=== PATIENT | female | born 1940 | race Caucasian/White ===

== ENCOUNTER → 2017-11-18 | Outpatient (CLI) | payer MEDICARE ==
[~2017-11-18] MED LIST: ASPI325 PO; FURO20 PO; HYDACE5 PO; Lisinopril2.5 MG PO; NEBI5 PO; One Daily Comp1 EACH PO; Pred Forte1 ML LEFTEYE; SPIR25 PO
== END | disposition home or self-care (01) ==
LOC: LAB SHORT 15:45 → LAB 15:45
DX: D00.07 Carcinoma in situ of tongue (principal); D00.06 Carcinoma in situ of floor of mouth
CPT/HCPCS: 88305

== ENCOUNTER → 2018-10-31 | Outpatient (CLI) | payer MEDICARE ==
[~2018-10-31] MED LIST changes: +ACET325 PO; +FAMO20 PO; +FURO40 PO; +LORA2L PO; +MORP20L PO; +NYST237S PO; +ONDA4ODT MM; +POTA10T PO; +PREDNISOLONE ACE5 ML LEFTEYE; +Prednisone10 MG PO; +Spironolactone25 MG PO; +Ventolin/Prove6.7 GM INH
[2018-10-31 09:58] LABS: BASOPHILS ABSOLUTE AUTO 0.08 K/mm3 (0.00-0.23); BASOPHILS PERCENT AUTO 1 % (0-2); EOSINOPHILS PERCENT AUTO 1 % (0-6); Hematocrit 43.1 % (33.0-51.0); Hemoglobin 14.8 g/dL (11.5-16.0); IMMATURE GRAN ABSOLUTE AUTO 0.02 K/mm3 (0.00-0.10); IMMATURE GRAN PERCENT AUTO 0 % (0-1); LYMPHOCYTES ABSOLUTE AUTO 0.61 K/mm3 (0.84-5.20); LYMPHOCYTES PERCENT AUTO 9 % (21-46); MONOCYTES ABSOLUTE AUTO 0.84 K/mm3 (0.16-1.47); MONOCYTES PERCENT AUTO 12 % (4-13); Mean Corpuscular HGB Conc 34.3 g/dL (31.5-36.5); Mean Corpuscular Volume 96 fL (80-100); Mean Platelet Volume 10.3 fL (9.1-12.4); NEUTROPHILS ABSOLUTE AUTO 5.38 K/mm3 (1.96-9.15); NEUTROPHILS PERCENT AUTO 77 % (41-73); Platelet Count 190 K/mm3 (150-400); RDW Coefficient Variation 13.3 % (11.7-14.2); RDW Standard Deviation 47.1 fL (35.1-46.3); Red Blood Cell Count 4.48 M/mm3 (3.80-5.20); White Blood Cell Count 7.03 K/mm3 (4.00-11.30)
[2018-10-31 10:07] LABS: Anion Gap 11 mmol/L (6-16); Blood Urea Nitrogen 28 mg/dL (8-24); Bun/Creatinine Ratio 16.6 (12.0-20.0); CO2, Blood 25 mmol/L (21-32); Calcium, Blood 9.1 mg/dL (8.5-10.1); Chloride, Blood 98 mmol/L (98-108); Creatinine, Blood 1.69 mg/dL (0.40-1.00); Glomerular Filtration Rate 29 (60-); Glucose, Blood 99 mg/dL (70-99); Potassium, Blood 4.4 mmol/L (3.5-5.5); Sodium, Blood 134 mmol/L (136-145)
[2018-10-31 10:08] LABS: Troponin I <0.017 ng/mL (0.000-0.040)
== END | disposition home or self-care (01) ==
LOC: LAB SHORT 09:49 → LAB EV 09:49
PROVIDERS: Physician Assistant Surgical
DX: R06.09 Other forms of dyspnea (principal)
CPT/HCPCS: 80048; 83880; 84484; 85025

== ENCOUNTER 2019-01-11 23:29 | Inpatient (IN) | payer MEDICARE ==
[~2019-01-11] VITALS: Ht 167.6 cm; Wt 70.3 kg
[~2019-01-11 23:29] MED LIST changes: -ACET325 PO; -FAMO20 PO; -FURO40 PO; -LORA2L PO; -MORP20L PO; -NYST237S PO; -ONDA4ODT MM; -POTA10T PO; -PREDNISOLONE ACE5 ML LEFTEYE; -Prednisone10 MG PO; -Spironolactone25 MG PO; -Ventolin/Prove6.7 GM INH
[2019-01-11 23:46] LABS: BASOPHILS ABSOLUTE AUTO 0.05 K/mm3 (0.00-0.23); BASOPHILS PERCENT AUTO 1 % (0-2); EOSINOPHILS ABSOLUTE AUTO 0.02 K/mm3 (0.00-0.68); EOSINOPHILS PERCENT AUTO 0 % (0-6); Hematocrit 43.3 % (33.0-51.0); Hemoglobin 14.9 g/dL (11.5-16.0); IMMATURE GRAN ABSOLUTE AUTO 0.05 K/mm3 (0.00-0.10); IMMATURE GRAN PERCENT AUTO 1 % (0-1); LYMPHOCYTES ABSOLUTE AUTO 0.63 K/mm3 (0.84-5.20); LYMPHOCYTES PERCENT AUTO 7 % (21-46); MONOCYTES ABSOLUTE AUTO 1.19 K/mm3 (0.16-1.47); MONOCYTES PERCENT AUTO 13 % (4-13); Mean Corpuscular HGB 32.3 pg (26.0-34.0); Mean Corpuscular HGB Conc 34.4 g/dL (31.5-36.5); Mean Corpuscular Volume 94 fL (80-100); Mean Platelet Volume 10.2 fL (9.1-12.4); NEUTROPHILS ABSOLUTE AUTO 7.49 K/mm3 (1.96-9.15); NEUTROPHILS PERCENT AUTO 80 % (41-73); Platelet Count 159 K/mm3 (150-400); RDW Coefficient Variation 13.5 % (11.7-14.2); RDW Standard Deviation 46.3 fL (35.1-46.3); Red Blood Cell Count 4.61 M/mm3 (3.80-5.20); White Blood Cell Count 9.43 K/mm3 (4.00-11.30)
[2019-01-12 00:09] LABS: Troponin I 0.016 ng/mL (0.000-0.040)
[2019-01-12 00:13] LABS: Albumin, Blood 3.5 g/dL (3.4-5.0); Albumin/Globulin Ratio 1.1 (0.8-1.8); Bilirubin, Total 0.7 mg/dL (0.1-1.0); Calcium, Blood 8.4 mg/dL (8.5-10.1); Creatinine, Blood 1.67 mg/dL (0.40-1.00); Globulin, Blood 3.2 g/dL (2.2-4.0); Potassium, Blood 4.1 mmol/L (3.5-5.5); Total Protein, Blood 6.7 g/dL (6.4-8.2)
[2019-01-12] MEDS ORDERED: POTA10T PO (00:22)
[2019-01-12] MEDS ORDERED: FURO40 PO (00:23)
[2019-01-12] MEDS ORDERED: Spironolactone25 MG PO (00:23)
[2019-01-12 01:17] LABS: Free Thyroxine 0.99 ng/dL (0.70-1.60)
[2019-01-12 01:19] LABS: Thyroid Stimulating Hormone 5.05 uIU/mL (0.360-4.800); Triiodothyronine, Free 2.36 pg/mL (2.18-3.98)
[2019-01-12 01:36] LABS: PCO2 Arterial 35.5 mmHg (35-45); PO2 Arterial 67.9 mmHg (80-100); pH Blood Arterial 7.33 (7.35-7.45)
[2019-01-12 03:05] LABS: Source, Urine Clean Catch
[2019-01-12 03:07] LABS: Appearance, Urine Clear (Clear); Bilirubin, Urine Neg (Neg); Blood, Urine Neg (Neg); Color, Urine Yellow (P-Yellow); Glucose Qualitative, Urine Neg (Neg); Ketones, Urine Neg (Neg); Leukocyte Esterase, Urine 1+ (Neg); Nitrite, Urine Neg (Neg); Protein, Urine 2+ (Neg); Specific Gravity, Urine 1.015 (1.003-1.022); Urobilinogen, Urine NORM (Normal)
[2019-01-12 03:13] LABS: Bacteria Many /hpf; Red Blood Cells, Urine 0-2 /hpf (0-2); Squamous Epithelial Cells Mod /hpf (Few)
[2019-01-12 03:29] LABS: Creatinine, Urine Random 73.6 mg/dL (27.00-270.00); Uric Acid, Urine Random 19.4 mg/dL (7.5-49.5)
--- NOTE | 2019-01-12 04:16 | NUR ---
ADMIT PT TO PCU FROM ED ON BED, SPO2>90% ON 2LNC WHICH IS BASELINE FOR PT. PT TACHYPNEIC. PT PROVIDED URINE SAMPLE AND SPUTUM SAMPLE. VSS UPON ADMISSION EXCEPT RR. BIPAP ON STANDBY AT BEDISDE, PT DID NOT REQUIRE THIS DURING THEIR TIME IN PCU. IV ABX X 2 ADMINISTERED TO PT. 2ND IV ONTAINED. ADMISSION PACKET COMPLETED. PT'S LABS SHOW EXTREME HYPONATREMIA, HYPERSALINE SOLUTION ORDERED BY [facility], PER FACILITY PROTOCOL THIS CAN ONLY BE ADMINISTERED IN ICU OR ED. [facility] CALLED, DECISION MADE TO TRANSFER PT TP ICU. ALL PT'S BELONGINS GIBRAN TO ICU WHEN PT HAS TRANSFERRED. REPORT GIVEN TO BILLY REN.
--- NOTE | 2019-01-12 04:41 | NUR ---
ARRIVAL TO ICU PT ARRIVES AT 0400 FROM PCU. SHE IS AWAKE, A/O X3 BUT IS SLIGHTLY ANXIOUS. STATES SHE IS COLD. BREATH SOUNDS COARSE, MORE SO IN R SIDE. NSR, HR 90S. BP LOW BUT PT STATES HER BP IS USUALLY ON THE LOWER SIDE; MAP GREATER THAN 65. SPO2 96% ON 2L NC. RECEIVED DUONEB TX AFTER ARRIVAL TO ICU. 3% SALINE STARTED IN PERIPHERAL IV, SINCE THAT IS ONLY ACCESS AT THIS TIME. WILL MONITOR SITE CLOSELY. CALL LIGHT WITHIN REACH.
[2019-01-12 05:28] LABS: Adenovirus Not Detected (NOT DETECT); Bordetella pertussis Not Detected (NOT DETECT); Chlamydophila pneumoniae Not Detected (NOT DETECT); Coronavirus 229E Not Detected (NOT DETECT); Coronavirus HKU1 Not Detected (NOT DETECT); Coronavirus NL63 Not Detected (NOT DETECT); Coronavirus OC43 Not Detected (NOT DETECT); Human Metapneumovirus Not Detected (NOT DETECT); Human Rhinovirus/Enterovirus Detected (NOT DETECT); Influenza A Not Detected (NOT DETECT); Influenza A/2009-H1 Not Detected (NOT DETECT); Influenza A/H1 Not Detected (NOT DETECT); Influenza A/H3 Not Detected (NOT DETECT); Influenza B Not Detected (NOT DETECT); Mycoplasma pneumoniae Not Detected (NOT DETECT); Parainfluenza Virus 1 Not Detected (NOT DETECT); Parainfluenza Virus 2 Not Detected (NOT DETECT); Parainfluenza Virus 3 Not Detected (NOT DETECT); Parainfluenza Virus 4 Not Detected (NOT DETECT); Respiratory Syncytial Virus Not Detected (NOT DETECT)
--- NOTE | 2019-01-12 06:31 | NUR ---
SHIFT SUMMARY PT ARRIVED FROM PCU TO ICU AT 0400. 3% SALINE STARTED AROUND 0430. NO INFILTRATION OR REDNESS NOTED AROUND IV SITE. PT RECIEVED DUONEB AFTER ARRIVAL FOR SOB. WAS HAVING DIFFICULTY LYING BACK IN BED. REPEAT LACTIC ACID ELEVATED. MD PETERSON NOTIFIED, ALONG WITH BNP RESULT. T.O. TO ADMINISTER AM LASIX EARLY. PT SLEEPING AT THIS TIME. LABS TO BE DRAWN AT 0700. BP 90S/60S; AWARE. WILL GIVE BEDSIDE, HANDOFF REPORT TO DAY RN.
[2019-01-12 07:12] LABS: Hematocrit 42.2 % (33.0-51.0); Hemoglobin 14.7 g/dL (11.5-16.0); Mean Corpuscular HGB 32.2 pg (26.0-34.0); Mean Corpuscular HGB Conc 34.8 g/dL (31.5-36.5); Mean Corpuscular Volume 93 fL (80-100); Platelet Count 154 K/mm3 (150-400); RDW Coefficient Variation 13.3 % (11.7-14.2); RDW Standard Deviation 45.1 fL (35.1-46.3); Red Blood Cell Count 4.56 M/mm3 (3.80-5.20); White Blood Cell Count 8.77 K/mm3 (4.00-11.30)
[2019-01-12 07:28] LABS: Bun/Creatinine Ratio 21.2 (12.0-20.0); Calcium, Blood 8.6 mg/dL (8.5-10.1); Creatinine, Blood 1.6 mg/dL (0.40-1.00)
[2019-01-12 07:33] LABS: Albumin, Blood 3.4 g/dL (3.4-5.0); Bilirubin, Total 0.7 mg/dL (0.1-1.0); Bun/Creatinine Ratio 21.5 (12.0-20.0); CPK Creatine Kinase 246 U/L (26-193); Calcium, Blood 8.4 mg/dL (8.5-10.1); Creatinine, Blood 1.58 mg/dL (0.40-1.00); Globulin, Blood 3.4 g/dL (2.2-4.0); Potassium, Blood 4.1 mmol/L (3.5-5.5); Total Protein, Blood 6.8 g/dL (6.4-8.2); Troponin I <0.015 ng/mL (0.000-0.040)
[2019-01-12 07:47] LABS: Creatine Kinase MB 11.7 ng/mL (0.0-3.6); Creatine Kinase MB Index 4.8 (0.0-4.0)
--- NOTE | 2019-01-12 07:54 | NUR ---
INITIAL ASSESSMENT PATIENT RESTING QUIETLY UPON ENTERING ROOM. PATIENT ALERT AND ORIENTED X 4, AFEBRILE. CIWA OF 1 PATIENT CAN BE ANXIOUS AT TIMES. PATIENT CONTINUES TO STATE THAT SHE "IS SO THIRSTY, BUT THEY WON'T LET HER DRINK". NURSE NOTED MOIST COUGH LATER IN CONVERSATION AND PATIENT STATES "I DON'T HAVE ANY WATER TO COUGH UP". PATIENT INFORMED THAT BNP ELEVATED WHEN CAME IN AND EXPLAINED THAT IT MEANS SHE IS FLUID OVERLOADED AND THAT EVEN THOUGH IT FEELS LIKE SHE IS DRY THAT SHE ACTUALLY IS NOT. PATIENT STATES THAT SHE UNDERSTANDS. 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 PATIENT WEAK BUT ABLE TO MOVE ALL EXTREMITIES. PATIENT DENIES PAIN OR DISCOMFORT AT THIS TIME. PATIENT SATTING 90% AND GREATER ON 2 L NC. PATIENT STATES SHE NORMALLY WEARS 2 L NC AT NIGHT AT HOME. R LUNGS COARSE THROUGHOUT, L LUNGS COARSE AND WHEEZY THROUGHOUT. PATIENT HAS MOIST, NONPRODUCTIVE COUGH. PATIENT STATES THAT SHE USUALLY COUGHS UP THICK, WHITE SPUTUM AT HOME. PATIENT HAS SOB WITH EXERTION. PATIENT IN SR, HR IN THE 90S. SBP IN THE 90S. AM LASIX GIVEN EARLY BY SKIMMER REVERBERATORY FOR COARSE/ CRACKLY LUNGS AND SOB. 1+ EDEMA NOTED IN BLES. GI WNL. PATIENT NPO AT THIS TIME. LAST BM YESTERDAY. WNL. SKIN COOL, DRY, FRAGILE. NO WOUNDS NOTED. 3% SALINE INFUSING AT 30 MLS/ HOUR. BED LOW, CALL LIGHT IN REACH. WILL CONTINUE TO MONITOR PATIENT FREQUENTLY THROUGHOUT SHIFT.
--- NOTE | 2019-01-12 12:00 | NUR ---
PATIENT REMAINS AFEBRILE. VITAL SIGNS STABLE. NO COMPLAINTS. NO ACUTE CHANGES TO NOTE ON. WILL CONTINUE TO MONITOR.
[2019-01-12] MEDS ORDERED: PREDNISOLONE ACE5 ML LEFTEYE (15:04)
[2019-01-12 15:06] LABS: Bun/Creatinine Ratio 21.5 (12.0-20.0); Calcium, Blood 8.7 mg/dL (8.5-10.1); Creatinine, Blood 1.58 mg/dL (0.40-1.00)
[2019-01-12] MEDS ORDERED: Ventolin/Prove6.7 GM INH (15:08)
--- NOTE | 2019-01-12 15:29 | NUR ---
DR. ROCKWELL CALLED AND INFORMED OF SODIUM RESULT OF 123. DOCTOR WOULD LIKE TO CONTINUE 3% SODIUM DRIP. ORDER TO START ON CARDIAC DIET WITH 1500 CC FLUID RESTRICTION.
--- NOTE | 2019-01-12 16:30 | NUR ---
PATIENT REMAINS RESTING QUIETLY IN BED. NO COMPLAINTS. AFEBRILE. VSS. PATIENT IN ST, HR IN THE LOW 100S. SBP IN THE 90S. LUNGS COARSE THROUGHOUT. PATIENT SATTING 90% AND GREATER ON 2 L NC. PATIENT HAS MOIST, OCCASIONAL PRODUCTIVE COUGH, PRODUCING MODERATE AMOUNT OF THICK, WHITE SPUTUM. NO OTHER ACUTE CHANGES TO NOTE ON AT THIS TIME. WILL CONTINUE TO MONITOR.
[2019-01-12 17:02] LABS: CPK Creatine Kinase 339 U/L (26-193); Troponin I <0.015 ng/mL (0.000-0.040)
[2019-01-12 17:24] LABS: Creatine Kinase MB 13.6 ng/mL (0.0-3.6)
--- NOTE | 2019-01-12 18:47 | NUR ---
SHIFT SUMMARY PATIENT REMAINED ALERT AND ORIENTED T/O SHIFT. PATIENT ANXIOUS AT TIMES BUT REMAINED COOPERATIVE. CIWA 1-3. PATIENT HAS STARTED TO HAVE SOME TREMORING DAY HAS PROGRESSED. PATIENT BLIND IN L EYE FROM REPORT OF GLAUCOMA. [place] [facility] [place] PATIENT DOES BECOME DYSPNEIC WITH EXERTION. LUNGS HAVE BEEN COARSE THROUGHOUT THE DAY, R LOBES WHEEZY THIS AM. PATIENT HAS BEEN SATTING 90% AND GREATER ON 1 TO 2 L NC. PATIENT HAD MOIST, NONPRODUCTIVE COUGH IN AM. PATIENT HAS BEEN COUGHING UP MODERATE AMOUNT OF THICK, WHITE SPUTUM SINCE BEING GIVEN PRN GUAFENESIN. PATIENT HAS BEEN IN SR TO ST, HR 90S TO LOW 100S. SBP 80S TO 90S. GI WNL. PATIENT STARTED ON CARDIAC DIET WITH 1500 CC FLUID RESTRICTION. PATIENT HAS POOR APPETITE AT THIS TIME. WNL. PATIENT IS RECEIVING LASIX BID. NO CHANGE TO SKIN. PATIENT HAS BEEN REPOSITIONING SELF. 3% SALINE REMAINS INFUSING AT 30 MLS/ HOUR. PATIENT HAS NO COMPLAINTS AT THIS TIME. BED LOW, ALL LIGHT IN REACH. WILL BE GIVING REPORT TO ONCOMING PROCESSING LEAD NURSE SHORTLY.
[2019-01-12 19:56] LABS: Bun/Creatinine Ratio 20.6 (12.0-20.0); Calcium, Blood 9.3 mg/dL (8.5-10.1); Creatinine, Blood 1.65 mg/dL (0.40-1.00); Potassium, Blood 4.1 mmol/L (3.5-5.5)
--- NOTE | 2019-01-12 20:00 | NUR ---
ASSUMED PT CARE AT 1915 FROM SHARMIN COYNE PT SITTING UP IN BED LEANING FORWARD TO HELP BREATHE. PT NOTED TO BE SOB WITH MINIMAL EXERTION. LUNG SOUNDS ARE DIMINISHED WITH EXPIRATORY WHEEZES NOTED T/O ALL LOBES. OXYGEN SATURATIONS REMAIN ABOVE 90% WITH 2L OF OXYGEN VIA NC. PT IS ALERT AND ORIENTED X4; PLEASANT AND COOPERATIVE WITH CARES. NOTED TO BE SINUS TACHYCARDIC WITH HR 110'S. SBP 90'S, WHICH PT STATES IS NORMAL FOR HER. +1 PITTING EDEMA TO BLE'S. STANDBY ASSIST TO COMMODE. CALL LIGHT LEFT WITHIN REACH; PT ABLE TO MAKE NEEDS KNOWN.
--- NOTE | 2019-01-12 22:26 | NUR ---
ASSUMED CARE NOTE: ASSUMED CARE OF PT AT 2230, RECEIVED REPORT FROM MERLENE FINNEY. PT SLEEPING AT THIS TIME.
[2019-01-13 03:33] LABS: BASOPHILS ABSOLUTE AUTO 0.01 K/mm3 (0.00-0.23); BASOPHILS PERCENT AUTO 0 % (0-2); EOSINOPHILS PERCENT AUTO 0 % (0-6); Hematocrit 42.1 % (33.0-51.0); Hemoglobin 14.6 g/dL (11.5-16.0); IMMATURE GRAN ABSOLUTE AUTO 0.04 K/mm3 (0.00-0.10); IMMATURE GRAN PERCENT AUTO 0 % (0-1); LYMPHOCYTES ABSOLUTE AUTO 0.14 K/mm3 (0.84-5.20); LYMPHOCYTES PERCENT AUTO 2 % (21-46); MONOCYTES PERCENT AUTO 8 % (4-13); Mean Corpuscular HGB 32.5 pg (26.0-34.0); Mean Corpuscular HGB Conc 34.7 g/dL (31.5-36.5); Mean Corpuscular Volume 94 fL (80-100); Mean Platelet Volume 10.2 fL (9.1-12.4); NEUTROPHILS ABSOLUTE AUTO 8.12 K/mm3 (1.96-9.15); NEUTROPHILS PERCENT AUTO 90 % (41-73); Platelet Count 160 K/mm3 (150-400); RDW Coefficient Variation 13.7 % (11.7-14.2); RDW Standard Deviation 46.5 fL (35.1-46.3); Red Blood Cell Count 4.49 M/mm3 (3.80-5.20); White Blood Cell Count 9.01 K/mm3 (4.00-11.30)
[2019-01-13 03:54] LABS: Albumin, Blood 3.6 g/dL (3.4-5.0); Albumin/Globulin Ratio 1.1 (0.8-1.8); Bilirubin, Total 0.7 mg/dL (0.1-1.0); Calcium, Blood 9.2 mg/dL (8.5-10.1); Creatinine, Blood 1.68 mg/dL (0.40-1.00); Globulin, Blood 3.2 g/dL (2.2-4.0); Total Protein, Blood 6.8 g/dL (6.4-8.2)
--- NOTE | 2019-01-13 06:38 | NUR ---
SHIFT SUMMARY: PT REMAINED A/O X4 T/O SHIFT, SHE CONTINUES TO BE ON 2L OF 02 VIA NC WITH SPO2 ABOVE 90%. PT HAS COMPLAINED OF SOB ONCE T/O SHIFT, AND RECEIVED ONE BREATHING TX. PT HAS ALSO BEEN C/O OF DIFFICULTY FALLING ASLEEP, WHEN ADVISED TO PUT ON CPAP TO IMPROVE BREATHING WHICH WOULD AID IN SLEEPING, SHE REFUSED. PT HAS PRODUCTIVE COUGH PRODUCING WHITE THICK SPUTUM. PT DENIES ANY N/V. CIWA SCORES HAVE BEEN A 3 T/O SHIFT. PT CURRENTLY IN SINUS TACH WITH HR IN THE 100-110'S. PT HAS BEEN A SBA TO THE BATHROOM, AND EXPERIENCES DYSPNEA ON EXERTION. BED AT LOWEST LEVEL, CALL LIGHT WITHIN REACH. WILL CONTINUE TO MONITOR PT UNTIL REPORT IS GIVEN TO ONCOMING SHIFT.
--- NOTE | 2019-01-13 10:44 | NUR ---
CALLED IN RENAL CONSULT TO DR العلي: SEE NEW ORDERS.
--- NOTE | 2019-01-13 11:47 | NUR ---
RENAL US/POST VOID RESIDUAL: RENAL US BEING DONE AT BEDSIDE. PT UP TO COMMODE AND VOIDING 250ML OF DARK YELLOW, HAZY URINE PER BSC. PT STATES, "WELL, THAT'S MORE THAN IT HAS BEEN." POST VOID RESIDUAL ON BLADDER SCAN IS 67ML. WILL REPORT TO DR العلي.
[2019-01-13 11:55] LABS: Uric Acid, Blood 10.6 mg/dL (2.6-6.0)
[2019-01-13 11:58] LABS: Thyroid Stimulating Hormone 2.24 uIU/mL (0.360-4.800)
--- NOTE | 2019-01-13 12:45 | NUR ---
REQUEST FOR PT EVAL: R/T PT'S WEAKNESS AND UNSTEADY GAIT. PT'S IN CONCERNED ABOUT HER RETURNING DIRECTLY HOME. HE ASKED IF PT CAN HAVE A EVALUATION W/PT PRIOR TO DISCHARGE TO ASSESS IF SHE QUALIFIES FOR SNF. HE REPORTS HE WOULD LIKE HER TO GO TO [facility] IF SHE QAULIFIES FOR SNF PLACEMENT.
--- NOTE | 2019-01-13 15:30 | NUR ---
LATE ENTRY: 1130: RHYTHM CHANGED FROM SINUS TACH TO A FIB WITH RVR, RATE 130-140 SUSTAINED. BP 92/56. REPORTED TO DR. ROCKWELL BY PHONE, RECEIVED TELEPHONE ORDER FOR NS 250 ML BOLUS, WHICH FINISHED AT 1245. LATEST BP 92/51, HR 120-130. 3% SALINE INFUSION STOPPED THIS MORNING PER / SEVERIANO PENDING LAB RESULTS.
--- NOTE | 2019-01-13 15:34 | NUR ---
LATE ENTRY: 1200: DR. العلي NOTIFIED OF LAB RESULTS. NO NEW ORDERS AT THIS TIME.
--- NOTE | 2019-01-13 18:09 | NUR ---
SHIFT SUMMARY: PT IS ALERT AND ORIENTED X3. PT IS MORE CALM/RELAXED, AND REPORTS, "I'M FEELING BETTER NOW." PT APPEARS TO HAVE LESS RESPIRATORY DISTRESS. PT ABLE TO MOVE SELF IN BED, HOWEVER, NEEDS 1 PERSON SBA W/TNX'S. CIWA-1 T/O SHIFT. LUNGS IMPROVED, WITH MORE AIR FLOW HEARD. REMAINS DIMINISHED IN THE BILATERAL BASES. SPO2 SATS >90% ON 2L 02 VIA N/C. PT REC'ING NEBULIZER TX'S PER RT. PT HAS HAD A FREQUENT, NON-PRODUCTIVE COUGH. PT USING FLUTTER VALVE AT BEDSIDE. HR IRREGULAR, ST W/FREQUENT PAC'S, OCCASIONAL PVC'S. HR CONTINUES TO BE ELEVATED 120-130'S AT REST. PT REC'D 250ML FLD BOLUS PER DR ROCKWELL, WHICH PROVED UNHELPFUL IN REDUCING HR. PT REC'D SMALL DOSE OF COREG PO ONCE SBP >100, HOWEVER, HR REMAINS 120-130'S AT THIS TIME. CONTINUED 1+ EDEMA TO THE LE'S BILATERALLY. PT HAS HAD A POOR APPETITE T/O SHIFT. PT REPORTS THIS IS UNCHANGED FROM HOME. PT WITH ONLY SMALL AMT OF URINE PER BSC, WITH POST VOID RESIDUAL 67ML.
--- NOTE | 2019-01-13 19:29 | NUR ---
REPORTED OFF TO SHARMIN BLUNT WHOM IS NOW ASSUMING CARE OF PT.
--- NOTE | 2019-01-13 20:30 | NUR ---
ASSUMED PT CARE FROM SHARMIN ANTONY PT SITTING UP IN BED, LEANING FORWARD TO AID WITH BREATHING. PT ASSISTED UP TO BEDSIDE COMMODE TO VOID PT HAS BEEN ATTEMPTING TO HOLD URINE D/T FATIGUE AND SOB DURING TRANSFERS. PT VOIDED 100 THAT WAS COUNTED; HOWEVER, UNABLE TO MEASURE THE REST PT TOSSED WIPES INTO COMMODE THAT ABSORBED MOST OF URINE. LUNG SOUNDS ARE DIMINISHED T/O WITH EXPIRATORY WHEEZES NOTED T/O. PT HAS A DRY, WEAK, NON-PRODUCTIVE COUGH; ENCOURAGED USE OF FLUTTER VALVE THAT IS AT BEDSIDE. UPON CHANGE OF SHIFT DISCUSSION WAS HAD WITH DAY RN REGARDING PT'S RHYTHM TO WHETHER IT WAS SINUS TACHYCARDIA WITH FREQUENT PAC'S OR AFIB WITH RVR. EKG WAS OBTAINED, WHICH SHOWED AFIB WITH RVR; RICK ALMODOVAR WAS NOTIFIED. PT REMAINS WITH +1 EDEMA TO BLE'S. BLOOD PRESSURE REMAINS STABLE WITH SBP'S 90'S WITH MAP'S 70'S. PT C/O PAIN ONLY WHEN COUGHING, BUT RESOLVES QUICKLY; THEREFORE, DENIES THE NEED FOR ANY PAIN RELIEF. PT STATES SHE JUST MISSES HER DOGS AND IS READY TO GO HOME. CIWA SCORE OF 0. PT STATES SHE IS SEEING HER DOG WHEN SHE CLOSES HER EYES AND DID MAKE A COMMENT REGARDING CORDS IN BIN LOOKING LIKE GREEN BEANS, BUT PT HAS LOGICAL THINKING BEHIND SAID STATEMENTS; NEGATIVE FOR VISUAL HALLUCINATIONS. SHE ALSO STATES SHE FEELS MORE RELAXED AND AT EASE. CALL LIGHT LEFT WITHIN REACH; PT IS ABLE TO MAKE HER NEEDS KNOWN.
--- NOTE | 2019-01-13 20:52 | NUR ---
CALL PLACED TO RICK ALMODOVAR IN REGARDS TO RHYTHM CHANGE FROM SINUS TACHYCARDIA TO AFIB WITH RVR; HR 100-120'S; SBP 90'S. ASYMPTOMATIC. PT IS SOB, BUT THIS IS HER BASELINE SINCE ADMIT D/T HER COPD AND FLUID OVERLOAD WITH BNP CLOSE TO 5000. RICK ALMODOVAR STATED SHE WOULD BE UP TO ASSESS PT AND LOOK AT EKG.
--- NOTE | 2019-01-13 21:36 | NUR ---
RICK ALMODOVAR ON UNIT TO REVIEW EKG AND PLACE ORDERS IN REGARDS TO NEW ONSET OF AFIB WITH RVR.
[2019-01-13 22:18] LABS: Bun/Creatinine Ratio 24.2 (12.0-20.0); Calcium, Blood 9.4 mg/dL (8.5-10.1); Creatinine, Blood 1.86 mg/dL (0.40-1.00); Magnesium, Blood 2.2 mg/dL (1.6-2.4); Potassium, Blood 4.7 mmol/L (3.5-5.5)
--- NOTE | 2019-01-13 22:52 | NUR ---
PT REMAINS AFIB WITH RVR S/P IV LOPRESSOR; BP REMAINS STABLE.
--- NOTE | 2019-01-13 23:00 | NUR ---
NOTIFIED RICK ALMODOVAR THAT IV LOPRESSOR WAS UNEFFECTIVE FOR RATE CONTROL/CONVERSION OF AFIB TO NSR.
[2019-01-14 03:15] LABS: BASOPHILS ABSOLUTE AUTO 0.02 K/mm3 (0.00-0.23); BASOPHILS PERCENT AUTO 0 % (0-2); EOSINOPHILS ABSOLUTE AUTO 0.01 K/mm3 (0.00-0.68); EOSINOPHILS PERCENT AUTO 0 % (0-6); Hematocrit 44.5 % (33.0-51.0); Hemoglobin 14.9 g/dL (11.5-16.0); IMMATURE GRAN PERCENT AUTO 1 % (0-1); LYMPHOCYTES ABSOLUTE AUTO 0.27 K/mm3 (0.84-5.20); LYMPHOCYTES PERCENT AUTO 2 % (21-46); MONOCYTES ABSOLUTE AUTO 0.88 K/mm3 (0.16-1.47); MONOCYTES PERCENT AUTO 5 % (4-13); Mean Corpuscular HGB 31.7 pg (26.0-34.0); Mean Corpuscular HGB Conc 33.5 g/dL (31.5-36.5); Mean Corpuscular Volume 95 fL (80-100); Mean Platelet Volume 10.8 fL (9.1-12.4); NEUTROPHILS ABSOLUTE AUTO 15.57 K/mm3 (1.96-9.15); NEUTROPHILS PERCENT AUTO 92 % (41-73); Platelet Count 153 K/mm3 (150-400); RDW Coefficient Variation 14.2 % (11.7-14.2); White Blood Cell Count 16.85 K/mm3 (4.00-11.30)
[2019-01-14 03:36] LABS: Alanine Aminotransfer (ALT/SGP 41 U/L (12-78); Albumin, Blood 3.6 g/dL (3.4-5.0); Albumin/Globulin Ratio 1.1 (0.8-1.8); Alk Phos 58 U/L (50-136); Anion Gap 8 mmol/L (6-16); Aspartate Aminotrans (AST/SGOT 50 U/L (12-37); Bilirubin, Total 0.7 mg/dL (0.1-1.0); Blood Urea Nitrogen 46 mg/dL (8-24); Bun/Creatinine Ratio 22.3 (12.0-20.0); CO2, Blood 25 mmol/L (21-32); Calcium, Blood 9.8 mg/dL (8.5-10.1); Chloride, Blood 98 mmol/L (98-108); Creatinine, Blood 2.06 mg/dL (0.40-1.00); Globulin, Blood 3.2 g/dL (2.2-4.0); Glomerular Filtration Rate 25 (60-); Glucose, Blood 117 mg/dL (70-99); Magnesium, Blood 2.4 mg/dL (1.6-2.4); Phosphorus, Blood 5.3 mg/dL (2.5-4.9); Sodium, Blood 131 mmol/L (136-145); Total Protein, Blood 6.8 g/dL (6.4-8.2)
--- NOTE | 2019-01-14 04:27 | NUR ---
DR. WILSON UPDATED REGARDING INCREASE IN WBC AND NEUTROPHIL COUNT; NOTIFIED THAT PT WAS ONLY BEING COVERED BY LEVAQUIN 750MG. NO RESULTS FROM CULTURES. NO NEW ORDERS.
--- NOTE | 2019-01-14 07:15 | NUR ---
END OF SHIFT SUMMARY PT HAS RESTED ON AND OFF T/O SHIFT. ABLE TO MAKE POSITION CHANGES BY HERSELF. ALERT AND ORIENTED X4. CIWA SCORES HAVE REMAINED ZERO. ASSISTED PT TO BEDSIDE COMMODE THREE TIMES THIS SHIFT WITH ONLY VOIDING ONCE WITH 100CC MEASURED AND THE REST UNMEASURED D/T PT PLACING WIPES IN COMMODE TO ABSORB URINE. BLADDER SCANNED AT END OF SHIFT; 515CC NOTED TO BE RETAINED IN BLADDER. DR. العلي GAVE ORDERS TO PLACE CROW CATHETER D/T URINARY RETENTION. PT REFUSED CROW CATHETER AND STATED THAT SHE DOESN'T WANT ONE BECAUSE IT WILL GIVE HER A "UTI". EDUCATED PT THAT HER URINE CULTURE HAS SHOWN GROWTH ON FIRST DAY, WHICH MAY INDICATE UTI. ALSO EDUCATED AND REINFORCED THAT IF SHE CONTINUES TO RETAIN THAT COULD CAUSE A UTI. PT STATED SHE WOULD LIKE TO TRY TO VOID ONE MORE TIME BEFORE ACCEPTING CROW CATHETER. OVERALL PT HAS BEEN PLEASANT AND COOPERATIVE WITH CARES; CALL LIGHT LEFT WITHIN REACH. REPORT HANDED OFF TO PAYTON RN.
--- NOTE | 2019-01-14 07:30 | NUR ---
AM ASSESMENT: BEDSIDE REPORT REC'D FROM SHARMIN BLUNT AND THIS RN IS ASSUMING CARE. PT IS ALERT AND ORIENTED X3. PLEASANT AND COOPERATIVE WITH CARE. PT HAS SOMEWHAT FLAT AFFECT, AND IS EAGER TO GO HOME. PT DOESN'T HAVE ANY CURRENT C/O, HOWEVER, REPORTS LONG STANDING HX OF "SORE THROAT". LUNGS ARE DIMINISHED T/O BILATERALLY. SATS >90% ON 2L 02 VIA N/C. HR IRREGULAR, ST W/ FREQUENT PAC'S 100-110'S RANGE. PT STARTED ON COREG YESTERDAY. 1+ EDEMA IN LE'S, IMPROVED TODAY. ABD SOFT/ROUND/NON-TENDER TO PALPATION. PT HAS CONTINUED POOR APPETITE, HOWEVER, IMPROVED TODAY. PT HAS KNOWN URINARY RETENTION PER NOC SHIFT BLADDER SCAN, HOWEVER, PT ADAMENTLY REFUSING URINARY CATHETER PLACEMENT AT THIS TIME AND REPORTS SHE DOES NOT "NEED TO PEE RIGHT NOW." EDUCATED PT ON RISKS OF URINARY RETENTION AND PT CONT TO REFUSE. -DNR STATUS
--- NOTE | 2019-01-14 08:30 | NUR ---
URINARY RETENTION: PT AGREED TO GET OOB AND TRY TO VOID ON THE BSC. PT ONLY VOIDED 25ML OF THICK DARK YELLOW URINE WITH LG AMTS OF CASTS. PT AGAIN REFUSES TO HAVE CROW PLACED, AGAIN, DISCUSSED THE POSSIBLE RISKS WITH PT. SPOKE WITH UPON ARRIVAL RE: URINARY RETENTION. HE SPOKE W/PT, AND REPORTS SHE "JUST WANTS TO COME HOME." CALLED AND SPOKE WITH SHELIA CHRISTIAN, WHOM WILL COME AND TALK WITH PT.
--- NOTE | 2019-01-14 10:00 | NUR ---
DR ROCKWELL IN TO ASSESS PT. PT AGREEABLE TO HAVE CATHETER PLACED AFTER TALKING WITH DR ROCKWELL AND AGREEABLE TO STAY FOR TX AT THIS TIME. PALLATIVE CARE CONSULT STILL PENDING.
--- NOTE | 2019-01-14 10:20 | NUR ---
Pt wanting to leave and demonstrating stress. Review of patient with doctor bonds and pt . plan is pt will accept eddy and will help with aplan to get home.
--- NOTE | 2019-01-14 11:52 | NUR ---
CROW CATHETER PLACED AT THIS TIME. INSTANTLY DRAINING A LG AMT OF DARK YELLOW, CLOUDY URINE. PT REPEATED AT THIS TIME, "I WOULD LIKE TO JUST GO HOME." CALLED ANAHI TO REPORT PT'S FINANCIAL CONCERNS WITH HOSPITAL BILLS. PT IS A SMOKER AND THIS RN OFFERRED NICOTINE PATCHES, TO WHICH PT DECLINED.
--- NOTE | 2019-01-14 12:36 | NUR ---
ANAHI, PALLATIVE CARE IN TO CONSULT WITH PT.
--- NOTE | 2019-01-14 17:26 | NUR ---
REVIEW OF PATIENT WITH HOSPITALIST AND NURSING. MET WITH PATIENT TO DISCUSS HER GOALS AND NEEDS. SYMPTOM REVIEW PT DENIES HEADACHES OR RINGING IN EARS OR BALANCE DISTURBANCE. PT MAIN COMPLAINT IS HER MOUTH SORENESS AND ABILITY TO SWALLOW. HER THROAT IS DRY. SHE HAS TRIED MANY OPTIONS TO CARE FOR IT. PT COMPLAINS OF PAINFULL COUGH AND CHEST WALL AND BACK DEEP SORENESS AND PAIN. PT HAS SOME STRESS OF VENTILATION HARD TO PULL AIR IN AND OUT AND MOVE CHEST. DENIES NAUSEA POOR APPETITE. REVIEW OF SLEEP PT HAS EXTREME DIFFICULTY WITH SLEEPING THAT IS CHRONIC AND HAS BEEN GOING ON FOR AWHILE. IT IS VERY DISTRESSING TO PATIENT. THE PATIENT STATES SHE DOES NOT WANT TO TAKE MEDICATIONS FOR SLEEP OR ANEXIETY. WE REVIEWED HER DAILY PATTERNS AND COME UP WITH NON PHARMACOLOGICAL PLAN. REVIEW OF APPS AVAILABLE TO HELP WITH SLEEP. REVIEW OF AROMATHERAPY FOR MOISTURE. REVIEW OF STRESS REDUCTION. PT TAKING INVENTORY OF HER LIVE AND EXPRESSING SOME GRIEF OF LOSS OF FUNCTION AND AUTONOMY. REVIEW OF MID LEVELS OF CARE AND FEELING OF CONTROL. WE ALSO DISCUSSED HOSPICE ENCOURAGED HER TO TAKE CONTROL. PT LOVES TO WRITE SUGGESTED SOME WRITING STRATEGIES TO MAKE KAUSHIK PENG IS QULAITY FOR HER AND WHEN TO DRAW A LINE ON FULL TREATMENT. SHE FOUND GREAT COMFORT IN THIS OPTION OF EXPRESSION AND CONTROL. WILL FOLLOW UP WITH PT TOMORROW.
--- NOTE | 2019-01-14 17:52 | NUR ---
SHIFT SUMMARY: PT IS ALERT + ORIENTED X3. PT IN BETTER SPIRITS THIS AFTERNOON. PT ORIGINALLY STATING SHE WANTED TO GO HOME EARLIER THIS SHIFT, BUT AFTER TALKING WITH /DR ROCKWELL, PT IS AGREEABLE TO STAY UNTIL SHE IS WELL ENOUGH TO GO HOME. CROW CATHETER PLACED THIS SHIFT R/T URINARY RETENTION. LUNGS IMPROVED BUT REMAIN SOMEWHAT DIMINISHED T/O BILATERALLY WITH INSPIRATORY COARSENESS IN THE RLL. SATS >90% ON 1L 02 VIA N/C. HR REMAINS IRREGULAR, ST W/ FREQUENT PAC'S, CONTINUED 1+LE EDEMA BILATERALLY, IMPROVED. CROW DRAINED 550ML OF YELLOW URINE WITH CASTS. NO BM THIS SHIFT. PT MAY BENEFIT FROM BOWEL CARE PROTOCOL. PT HAS ALSO HAD A VERY POOR APPETITE, SLIGHTLY IMPROVED TODAY. PT ENJOYS TRUMAN NEPHRO. -DNR STATUS -PCU STATUS, WILL TNX WHEN BED IS AVAILABLE
--- NOTE | 2019-01-14 19:27 | NUR ---
ASSUMED PT CARE FROM SHARMIN ANTONY; CALLED REPORT TO SHARMIN YAO FOR TRANSFER TO PCU 11
--- NOTE | 2019-01-14 19:58 | NUR ---
PT TRANSFERRED OVER TO [facility] AT 1939
[2019-01-15 04:22] LABS: BASOPHILS ABSOLUTE AUTO 0.02 K/mm3 (0.00-0.23); BASOPHILS PERCENT AUTO 0 % (0-2); EOSINOPHILS ABSOLUTE AUTO 0.02 K/mm3 (0.00-0.68); EOSINOPHILS PERCENT AUTO 0 % (0-6); Hematocrit 45.1 % (33.0-51.0); Hemoglobin 15.2 g/dL (11.5-16.0); IMMATURE GRAN ABSOLUTE AUTO 0.12 K/mm3 (0.00-0.10); IMMATURE GRAN PERCENT AUTO 1 % (0-1); LYMPHOCYTES ABSOLUTE AUTO 0.31 K/mm3 (0.84-5.20); LYMPHOCYTES PERCENT AUTO 2 % (21-46); MONOCYTES ABSOLUTE AUTO 1.19 K/mm3 (0.16-1.47); MONOCYTES PERCENT AUTO 7 % (4-13); Mean Corpuscular HGB 31.9 pg (26.0-34.0); Mean Corpuscular HGB Conc 33.7 g/dL (31.5-36.5); Mean Corpuscular Volume 95 fL (80-100); Mean Platelet Volume 11.3 fL (9.1-12.4); NEUTROPHILS PERCENT AUTO 90 % (41-73); NRBC ABSOLUTE 0.02 K/mm3 (0.00-0.02); NRBC Auto 0.1 /100 WBC (0.0-0.2); Platelet Count 147 K/mm3 (150-400); RDW Coefficient Variation 14.1 % (11.7-14.2); RDW Standard Deviation 48.6 fL (35.1-46.3); Red Blood Cell Count 4.77 M/mm3 (3.80-5.20); White Blood Cell Count 16.86 K/mm3 (4.00-11.30)
[2019-01-15 04:33] LABS: Albumin, Blood 3.4 g/dL (3.4-5.0); Anion Gap 11 mmol/L (6-16); Blood Urea Nitrogen 66 mg/dL (8-24); Bun/Creatinine Ratio 27.4 (12.0-20.0); CO2, Blood 21 mmol/L (21-32); Calcium, Blood 9.6 mg/dL (8.5-10.1); Chloride, Blood 98 mmol/L (98-108); Creatinine, Blood 2.41 mg/dL (0.40-1.00); Glomerular Filtration Rate 21 (60-); Glucose, Blood 119 mg/dL (70-99); Magnesium, Blood 2.6 mg/dL (1.6-2.4); Phosphorus, Blood 5.4 mg/dL (2.5-4.9); Potassium, Blood 5.8 mmol/L (3.5-5.5); Sodium, Blood 130 mmol/L (136-145)
--- NOTE | 2019-01-15 05:24 | NUR ---
SHIFT SUMMARY PT RESTING IN ROOM COMFORTABLY AT THIS TIME. PT ARRIVED TO UNIT FROM ICU AT START OF SHIFT. SINCE ARRIVAL PT HAS DENIED ANY CP, OR SOB. PT REPORTS PAIN TO JAW AND MOUTH, BUT REFUSES ANY PAIN MEDS, REPORTS "IT'S MY NORMAL PAIN". RESP EVEN UNLABORED ON 2L NC W/ SATS >92%. PT IS INDEPENDENT IN ROOM WITH BSC AT BEDSIDE. PT ABLE TO REPOSITION SELF AND MOVE BETWEEN BED AND BSC W/O ASSIST. PT REPORTS HAS NOT BEEN SLEEPING WELL, REFUSES SLEEP MEDS. PT REPORTS HAS NOT SLEPT MUCH TONIGHT. DENIES OTHER NEEDS. CALL LIGHT IN REACH. PT CALLS APPROPRIATELY.
--- NOTE | 2019-01-15 08:00 | NUR ---
pt sitting up in bed awake a/ox3, pleasant and cooperative, seems depressed at this time, mildly flat affect, and reports feeling down due to being in hosp and is her anniversary and her spouces birthday, lungs are dim, kwame in right base, with some wheezing in bases, resp even and unlabord, productive cough of white sputum, is currently on .5 liters 02 via n/c, hrr, tele in place running st to afib, trace edema noted to b/l le, ppp+2, cap refill <3sec, vs stable, afebrile, iv sites are clear and patent, btx4, abd flat soft nontender, voids via eddy cath,tubing has sediment, dasha urine, skin c/w/d, jeff galvan, call light in reach. am care done.
--- NOTE | 2019-01-15 12:49 | NUR ---
PT DANDGLING ON SIDE OF BED, DOING OK, FAMILY/FRIENDS IN TO SEE HER. NO COMPLAINTS OR NEEDS AT THIS TIME. CALL LIGHT IN REACH.
--- NOTE | 2019-01-15 18:34 | NUR ---
pt has been sleepy today, napping off and on, no appetite, eating very little. got her up to chair this evening. no acute changes this shift. call light in reach.
--- NOTE | 2019-01-15 23:37 | NUR ---
ASSUMED CARE OF PATIENT AT APPROXIMATELY 1915 FROM JOSÉ Perkins RN. PATIENT ALERT AND ORIENTED X4; DROWSY AT TIMES; WEAK; SBA TO BEDSIDE COMMODE. PATIENT BLIND IN LEFT EYE; PATIENT REPORTS CHRONIC SORE THROAT; PATIENT HAS COUGH; PRN MEDICATION GIVEN. IVF STARTED PER ORDER; STOOL SAMPLE SENT TO R/O CDIFF; LAB REPORTS WILL NOT BE TESTED UNTIL MORNING. PATIENT DENIES PAIN, NUMBNESS, TINGLING, DIZZINESS AND NAUSEA. PATIENT HAS POOR APPETITE; REPORTS SHE DRANK AN ENSURE DURING SHIFT CHANGE. AFIB ON TELE WITH A RATE IN 100'S; OXYGEN SATURATION ABOVE 90% ON 2LPM VIA NC. PATIENT CURRENTLY RESTING IN BED; CALL LIGHT IN REACH; BED IN LOWEST POSISTION; BED ALARM ON; WILL CONTINUE TO MONITOR AND ASSESS UNTIL END OF SHIFT.
--- NOTE | 2019-01-16 00:24 | NUR ---
DR. العلي WAS BEDSIDE WITH PATIENT; ORDERS RECIEVED TO TURN NS FROM 100 ML/HR TO 50 ML/HR. NO OTHER ACUTE CHANGE TO REPORT. WILL CONTINUE TO MONITOR AND ASSESS UNTIL END OF SHIFT.
[2019-01-16 04:22] LABS: BASOPHILS ABSOLUTE AUTO 0.01 K/mm3 (0.00-0.23); BASOPHILS PERCENT AUTO 0 % (0-2); EOSINOPHILS PERCENT AUTO 0 % (0-6); Hematocrit 45.8 % (33.0-51.0); Hemoglobin 15.5 g/dL (11.5-16.0); IMMATURE GRAN ABSOLUTE AUTO 0.13 K/mm3 (0.00-0.10); IMMATURE GRAN PERCENT AUTO 1 % (0-1); LYMPHOCYTES ABSOLUTE AUTO 0.35 K/mm3 (0.84-5.20); LYMPHOCYTES PERCENT AUTO 3 % (21-46); MONOCYTES ABSOLUTE AUTO 0.95 K/mm3 (0.16-1.47); MONOCYTES PERCENT AUTO 7 % (4-13); Mean Corpuscular HGB 31.8 pg (26.0-34.0); Mean Corpuscular HGB Conc 33.8 g/dL (31.5-36.5); Mean Corpuscular Volume 94 fL (80-100); NEUTROPHILS ABSOLUTE AUTO 11.68 K/mm3 (1.96-9.15); NEUTROPHILS PERCENT AUTO 89 % (41-73); NRBC ABSOLUTE 0.02 K/mm3 (0.00-0.02); NRBC Auto 0.2 /100 WBC (0.0-0.2); Platelet Count 108 K/mm3 (150-400); RDW Coefficient Variation 14.1 % (11.7-14.2); RDW Standard Deviation 48.5 fL (35.1-46.3); Red Blood Cell Count 4.87 M/mm3 (3.80-5.20); White Blood Cell Count 13.12 K/mm3 (4.00-11.30)
[2019-01-16 04:42] LABS: Albumin, Blood 3.2 g/dL (3.4-5.0); Anion Gap 11 mmol/L (6-16); Blood Urea Nitrogen 85 mg/dL (8-24); Bun/Creatinine Ratio 30.2 (12.0-20.0); CO2, Blood 17 mmol/L (21-32); Calcium, Blood 9.3 mg/dL (8.5-10.1); Chloride, Blood 100 mmol/L (98-108); Creatinine, Blood 2.81 mg/dL (0.40-1.00); Glomerular Filtration Rate 17 (60-); Glucose, Blood 134 mg/dL (70-99); Magnesium, Blood 2.6 mg/dL (1.6-2.4); Phosphorus, Blood 6.3 mg/dL (2.5-4.9); Potassium, Blood 5.4 mmol/L (3.5-5.5); Sodium, Blood 128 mmol/L (136-145)
--- NOTE | 2019-01-16 06:11 | NUR ---
DR. العلي CALLED AROUND 0510 FOR PATIENT'S AM LABS; ORDERS RECIEVED TO CHANGE IVF. VSS. PATIENT SLEPT ABOUT SIX HOURS LAST NIGHT. FOAM APPLIED TO MATTRESS. NO OTHER ACUTE CHANGES TO REPORT. WILL CONTINUE TO MONITOR AND ASSESS UNTIL END OF SHIFT.
--- NOTE | 2019-01-16 08:00 | NUR ---
pt laying in bed awake a/ox3, pleasant and cooperative with care, flat affect, when asked about how she is doing she states she feels ok, just very discouraged, and depressed. lungs are clear dim in bases, kwame right base, is on one liter 02 via n/c, resp even and unlabored, no cough noted, hrirr, tele in place running afib per monitor, see strip, no edema noted, ppp+1, cap refill <3sec, vs stable, afebrile, iv site is clear and patent, btx4, abd flat soft nontender, voids via eddy cath draining clear yellow urine, skin c/w/d, mandy aguilar, call light in reach.
--- NOTE | 2019-01-16 13:30 | NUR ---
pt resting in bed, appears to be sleeping soundly, left to rest for a while. call light in reach.
[2019-01-16 14:26] LABS: International Normalized Ratio 1.36
--- NOTE | 2019-01-16 18:24 | NUR ---
pt had an uneventful day, sat up on the side of the bed this evening. very weak, no further acute changes this shift. call light in reach.
[2019-01-17 04:38] LABS: Hematocrit 44.2 % (33.0-51.0); Hemoglobin 15.1 g/dL (11.5-16.0)
[2019-01-17 04:49] LABS: International Normalized Ratio 1.32; Prothrombin Time Results 13.6 Sec (9.7-11.5)
[2019-01-17 04:50] LABS: Albumin, Blood 3.1 g/dL (3.4-5.0); Anion Gap 11 mmol/L (6-16); Blood Urea Nitrogen 91 mg/dL (8-24); Bun/Creatinine Ratio 30.4 (12.0-20.0); CO2, Blood 24 mmol/L (21-32); Calcium, Blood 9.3 mg/dL (8.5-10.1); Chloride, Blood 96 mmol/L (98-108); Creatinine, Blood 2.99 mg/dL (0.40-1.00); Glomerular Filtration Rate 16 (60-); Glucose, Blood 146 mg/dL (70-99); Magnesium, Blood 2.5 mg/dL (1.6-2.4); Phosphorus, Blood 6.1 mg/dL (2.5-4.9); Potassium, Blood 4.8 mmol/L (3.5-5.5); Sodium, Blood 131 mmol/L (136-145)
--- NOTE | 2019-01-17 07:32 | NUR ---
SHIFT SUMMARY ASSUMED CARE OF PT AT 1900 HRS, PT AWAKE, ALERT AND SITTING IN BED. RESPONDING APPROPRIATELY BUT WITH A DELAY, PATIENT WAS SOMEWHAT WITHDRAWN AND INTROSPECTIVE WITH EYES OFTEN AVERTED. TREATED PATIENT PER MD ORDER AND UNIT PROTOCOL. PT USED CALL LIGHT AND STANDBY ASSIST TO REACH BEDSIDE COMMODE WITH NO RESULT THIS SHIFT; PT REPORTS "I STILL FEEL LIKE I NEED TO GO." PT WARMED UP TO CARE THE SHIFT PROGRESSED, EVIDENCED BY INCREASED EYE CONTACT AND APPROPRIATELY BRISK VERBAL RESPONSES. PT REPORTED SOME SADNESS AND HOPELESSNESS AT HER CONDITION, BUT WAS OPEN TO TALKING ABOUT ALTERNATIVE PERSPECTIVES ON LIFE, , SUFFERING, AND "KARMA," STATING A PREFERENCE FOR EASTERN PHILOSOPHIES. PATIENT SLEPT LESS THAN HALF THIS SHIFT, WORKING ON CROSSWORD PUZZLES WHILE AWAKE. CARE AND REPORT PASSED TO ONCOMING SHIFT AT APPROX 0700, BED LOCKED AND LOW WITH CALL LIGHT IN REACH, PT SITTING UPRIGHT IN BED.
--- NOTE | 2019-01-17 12:24 | NUR ---
AM NOTE FOUND PT CRYING THIS MORNING. SHE EXPRESSED HER DESIRE TO GO HOME. SHE IS AWARE OF THAT SHE IS DYING. SHE DOESN'T THINK HER HAS ANY IDEA HOW FRAIL SHE IS. PT IS REFUSING TO EAT AND DRINK. HER THROAT IS VERY SORE. ACCORDING TO HER SPOUCE THE SORE THROAT HAS BEEN A PROBLEM FOR AT LEAST A YEAR. 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 HE DIDN'T KNOW WHAT IT WAS FROM. PT HAS TRIED MAGIC MOUTH WASH. SHE REFUSES TO USE IT. SAYS IT TASTES TERRIBLE AND THEN SHE CAN'T TASTE HER FOOD EITHER. PT DENIES SEASONAL ALLERGIES. SHE DOESN'T WEAR OXYGEN AT HOME. CONTINUE POT.
--- NOTE | 2019-01-17 13:16 | NUR ---
DR ISAIAH CAMPBELL HERE. TALKED WITH HIM ABOUT HER SORE THROAT/THROAT PAIN. ORDERS RECEIVED. DR COLON VISITING WITH PT AT BEDSIDE. CONTINUE POT.
--- NOTE | 2019-01-17 15:52 | NUR ---
TRANSFER TO 354 REPORT CALLED TO NICA FINNEY. PT/SARAH AWARE OF TRANSFER. CONTINUE POT.
[2019-01-18 05:46] LABS: BASOPHILS PERCENT AUTO 0 % (0-2); EOSINOPHILS ABSOLUTE AUTO 0.01 K/mm3 (0.00-0.68); EOSINOPHILS PERCENT AUTO 0 % (0-6); Hematocrit 45.9 % (33.0-51.0); Hemoglobin 15.6 g/dL (11.5-16.0); IMMATURE GRAN ABSOLUTE AUTO 0.06 K/mm3 (0.00-0.10); IMMATURE GRAN PERCENT AUTO 1 % (0-1); LYMPHOCYTES ABSOLUTE AUTO 0.42 K/mm3 (0.84-5.20); LYMPHOCYTES PERCENT AUTO 4 % (21-46); MONOCYTES PERCENT AUTO 11 % (4-13); Mean Corpuscular HGB 31.7 pg (26.0-34.0); Mean Corpuscular Volume 93 fL (80-100); Mean Platelet Volume 11.5 fL (9.1-12.4); NEUTROPHILS ABSOLUTE AUTO 10.31 K/mm3 (1.96-9.15); NEUTROPHILS PERCENT AUTO 85 % (41-73); Platelet Count 98 K/mm3 (150-400); RDW Standard Deviation 47.7 fL (35.1-46.3); Red Blood Cell Count 4.92 M/mm3 (3.80-5.20)
[2019-01-18 06:04] LABS: International Normalized Ratio 1.45; Prothrombin Time Results 14.9 Sec (9.7-11.5)
[2019-01-18 06:13] LABS: Albumin, Blood 3.1 g/dL (3.4-5.0); Anion Gap 8 mmol/L (6-16); Blood Urea Nitrogen 91 mg/dL (8-24); Bun/Creatinine Ratio 30.5 (12.0-20.0); CO2, Blood 28 mmol/L (21-32); Calcium, Blood 8.9 mg/dL (8.5-10.1); Chloride, Blood 93 mmol/L (98-108); Creatinine, Blood 2.98 mg/dL (0.40-1.00); Glomerular Filtration Rate 16 (60-); Glucose, Blood 124 mg/dL (70-99); Phosphorus, Blood 5.9 mg/dL (2.5-4.9); Potassium, Blood 4.8 mmol/L (3.5-5.5); Sodium, Blood 129 mmol/L (136-145)
--- NOTE | 2019-01-18 06:26 | NUR ---
SUMMARY: A/OX4, SPECIFIES NEEDS AND IS UP INDEPENDENTLY TO BSC. SHE IS SWEET AND PLEASANT BUT APPEARS WITHDRAWN AND DEPRESSED RE: HEALTH/PROGNOSIS, SUPPORT PROVIDED. 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 1L F.R. WAS MAINTAINED BUT PT LACKS PO INTAKE RESULT OF SORE THROAT R/T SQUAM.CELL CARCINOMA OF THE TONGUE. PT REFUSED NEEDING PRN BENEDRYL+MAALOX FOR IT THOUGH. SANDOSTATIN GTT CONT'S INFUSING BUT CAN BE SL AFTER THIS BAG. CROW IS PATENT/DRAINING. LS ARE CLEAR AND NO RESP DISTRESS OBSERVED ON 2L O2 VIA NC. PT REMAINS AFIB PER TELEMETRY AT 90'S-100'S BPM. NO ACUTE CHANGES, VSS/AFEBRILE. WCTM AND REPORT TO DAY RN.
--- NOTE | 2019-01-18 11:22 | NUR ---
theraputic visit with patient. She appreciated Dr. Canales visit it gave her comfort. She has decided to proceed with hospice. She has a online facedtime visit scheduled with her family this afternoon to relay her wishes to them. We discussed having conrol of life and doing it her own way. She has a garden and we reminised about gardening wins and love of plants. Notified her of our visit. He is not sure she needs hospice visits yet he thinkd he can care for her. Will discuss with him further. Hospice would be a great support to them both and less financial stress for them. The philosophy of hospice is more in line with her wishes. states he knows staff at [facility] and would choose them. pt has no preference. advised [employer].
--- NOTE | 2019-01-18 14:24 | NUR ---
Met with patient and her husbanc and sister to review a plan of care. Review of patient ECHO and comorbid conditions and assessment. Pt wants to go home her personnal belief system is not wanting aggressive medical care or life preserving treatments. Pt feels if she cant think or interact as she has been she wants to go! was hesitant about hospice he thought it was only for the bitter end. extensive discussion of the philosophy and service offered with hospice and pt autonomy. Advised them they will go home and hospice will come for a consutl and intake. 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 The [employer] caseworker protective services was notified of pt wanting to go home and hospice choices.
--- NOTE | 2019-01-18 19:27 | NUR ---
SHIFT SUMMARY: NO ACUTE CHANGES TO REPORT THIS SHIFT. PT A&O; CALM AND COOPERATIVE WITH CARE. PT HX SQUAMOUS CELL CARCINOMA; ORAL & TONGUE CA. MEDICATED FOR PAIN PER [facility]. EXPECTED D/C TO HOME WITH HOSPICE TOMORROW 01/19. REPORT GIVEN TO ONCOMING RN.
[2019-01-19 05:18] LABS: BASOPHILS ABSOLUTE AUTO 0.01 K/mm3 (0.00-0.23); BASOPHILS PERCENT AUTO 0 % (0-2); EOSINOPHILS ABSOLUTE AUTO 0.02 K/mm3 (0.00-0.68); EOSINOPHILS PERCENT AUTO 0 % (0-6); Hematocrit 46.1 % (33.0-51.0); Hemoglobin 15.7 g/dL (11.5-16.0); IMMATURE GRAN ABSOLUTE AUTO 0.06 K/mm3 (0.00-0.10); IMMATURE GRAN PERCENT AUTO 1 % (0-1); LYMPHOCYTES PERCENT AUTO 4 % (21-46); MONOCYTES ABSOLUTE AUTO 1.47 K/mm3 (0.16-1.47); MONOCYTES PERCENT AUTO 12 % (4-13); Mean Corpuscular HGB 31.8 pg (26.0-34.0); Mean Corpuscular HGB Conc 34.1 g/dL (31.5-36.5); Mean Corpuscular Volume 93 fL (80-100); Mean Platelet Volume 10.4 fL (9.1-12.4); NEUTROPHILS ABSOLUTE AUTO 10.52 K/mm3 (1.96-9.15); NEUTROPHILS PERCENT AUTO 84 % (41-73); Platelet Count 85 K/mm3 (150-400); RDW Coefficient Variation 14.1 % (11.7-14.2); RDW Standard Deviation 47.9 fL (35.1-46.3); Red Blood Cell Count 4.94 M/mm3 (3.80-5.20); White Blood Cell Count 12.58 K/mm3 (4.00-11.30)
[2019-01-19 05:29] LABS: International Normalized Ratio 1.87; Prothrombin Time Results 18.7 Sec (9.7-11.5)
[2019-01-19 05:37] LABS: Anion Gap 9 mmol/L (6-16); Blood Urea Nitrogen 90 mg/dL (8-24); Bun/Creatinine Ratio 31.1 (12.0-20.0); CO2, Blood 30 mmol/L (21-32); Calcium, Blood 8.7 mg/dL (8.5-10.1); Chloride, Blood 95 mmol/L (98-108); Creatinine, Blood 2.89 mg/dL (0.40-1.00); Glomerular Filtration Rate 17 (60-); Glucose, Blood 100 mg/dL (70-99); Phosphorus, Blood 5.3 mg/dL (2.5-4.9); Sodium, Blood 134 mmol/L (136-145)
--- NOTE | 2019-01-19 06:30 | NUR ---
SHIFT SUMMARY PT HAS SQUAMOUS CELL CARCINOMA AND THE PLAN IS TO D/C TODAY ON HOSPICE. PER REPORT. SHE IS ON A 1000CC FLUID RESTRICTION. SHE IS ALERT AND ORIENTED BUT IS WITHDRAWN AND FLAT. SHE IS BLIND IN HER LEFT EYE AND HAS COPD. SHE IS ON 2L NASAL CANNULA. SHE DID HAVE REPORTS OF PAIN LAST NIGHT SO BENEDRYL AND MALOX WAS GIVEN PER ORDER IN [facility]. SHE IS ON A 2G POTASSIUM DIET AND HAS A CROW IN FOR RETENTION. SHE IS INDEPENDENT TO BSC TAKES HER MEDS WHOLE AND IS CURRENTLY SALINE LOCKED. WILL CONTINUE TO MONITOR.
[2019-01-19 08:08] LABS: COMPLEMENT C3, SERUM 43 mg/dL (82-167); COMPLEMENT C4, SERUM 20 mg/dL (14-44)
[2019-01-19] MEDS ORDERED: FAMO20 PO (10:28)
[2019-01-19] MEDS ORDERED: ACET325 PO (10:28)
[2019-01-19] MEDS ORDERED: ONDA4ODT MM (10:29)
[2019-01-19] MEDS ORDERED: LORA2L PO (10:29)
[2019-01-19] MEDS ORDERED: NYST237S PO (10:29)
[2019-01-19] MEDS ORDERED: MORP20L PO (10:30)
[2019-01-19] MEDS ORDERED: Prednisone10 MG PO (10:31)
--- NOTE | 2019-01-19 12:46 | NUR ---
PT DC'D 1110 WITH DC INSTRUCTIONS TO PT AND . PT TX HOME VIA [facility] WHEELCHAIR TRANSPORT WITH OXYGEN AT 2L. PT'S POWERGLIDE DC'D LLU, CATH INTACT. CROW CATH DC'D PER RN PER DR MARIE VERBAL ORDER.
--- NOTE | 2019-01-19 19:51 | NUR ---
follow up call to check on plan with
[2019-01-20 14:07] LABS: ANA DIRECT Negative (Negative); ANTIMYELOPEROXIDASE (MPO) ABS <9.0 U/mL (0.0-9.0); ANTIPROTEINASE 3 (PR-3) ABS <3.5 U/mL (0.0-3.5); ATYPICAL PANCA <1:20 titer (Neg:<1:20); CYTOPLASMIC (C-ANCA) <1:20 titer (Neg:<1:20); PERINUCLEAR (P-ANCA) <1:20 titer (Neg:<1:20)
[2019-01-20 15:07] LABS: A/G RATIO 1.4 (0.7-1.7); ALBUMIN 3.3 g/dL (2.9-4.4); ALPHA-1-GLOBULIN 0.2 g/dL (0.0-0.4); ALPHA-2-GLOBULIN 0.5 g/dL (0.4-1.0); BETA GLOBULIN 0.8 g/dL (0.7-1.3); GAMMA GLOBULIN 0.9 g/dL (0.4-1.8); GLOBULIN, TOTAL 2.4 g/dL (2.2-3.9); PROTEIN, TOTAL, SERUM 5.7 g/dL (6.0-8.5)
== END 2019-01-19 11:10 | disposition hospice, home (50) | DRG 291 ==
LOC: ER 23:29 → PCU 01-12 01:14 → ICUW 01-12 01:14 → PCU 01-12 02:11 → ICUW 01-12 04:00 → PCU 01-14 19:43 → MEDS 01-17 15:57 → ENPENDDIS 01-19 09:00 → MEDS 01-19 11:10
PROVIDERS: Emergency Medicine; Family Medicine; Internal Medicine Gastroenterology; Internal Medicine Nephrology; Nurse Practitioner Acute Care; ADMIT Internal Medicine
PROC: 5A09357 Assistance with Respiratory Ventilation, Less than 24 Consecutive Hours, Continuous Positive Airway Pressure (ICD-10-PCS; principal; 2019-01-11)
DX: I50.23 Acute on chronic systolic (congestive) heart failure (principal); J96.21 Acute and chronic respiratory failure with hypoxia; E43 Unspecified severe protein-calorie malnutrition; J44.1 Chronic obstructive pulmonary disease with (acute) exacerbation; E87.1 Hypo-osmolality and hyponatremia; J84.9 Interstitial pulmonary disease, unspecified; E87.2 Acidosis; N18.4 Chronic kidney disease, stage 4 (severe); I42.0 Dilated cardiomyopathy; J20.6 Acute bronchitis due to rhinovirus; Z79.82 Long term (current) use of aspirin; Z51.5 Encounter for palliative care; F17.210 Nicotine dependence, cigarettes, uncomplicated; I73.9 Peripheral vascular disease, unspecified; E87.5 Hyperkalemia; R33.8 Other retention of urine; Z66 Do not resuscitate; I48.0 Paroxysmal atrial fibrillation; Z68.22 Body mass index [BMI] 22.0-22.9, adult; R62.7 Adult failure to thrive; R63.0 Anorexia; I27.20 Pulmonary hypertension, unspecified; R13.10 Dysphagia, unspecified
CPT/HCPCS: 0099U; 31720; 36415; 36600; 51702; 71045; 76770; 80048; 80053; 80069; 81001; 82533; 82550; 82553; 82570; 82803; 83520; 83605; 83735; 83880; 83930; 83935; 83970; 84100; 84132; 84165; 84295; 84300; 84439; 84443; 84481; 84484; 84540; 84550; 84560; 85014; 85018; 85025; 85027; 85610; 86038; 86160; 86256; 87040; 87070; 87086; 87205; 93005; 93010; 93306; 94640; 94644; 94660; 94667; 94760; 94762; 96374; 96375; 99285-25; A9270; C1751; J0456; J0696; J1100; J1644; J1940; J1956; J2930; J7030; J7050; J7060; J7512